=== PATIENT | female | born 1955 | race Two or more races ===

== ENCOUNTER 2018-08-09 09:58 | Day surgery (SDC) | payer OTHER ==
[~2018-08-09 09:58] MED LIST: DIOVAN HCT 1601 EACH PO; OMEPRAZOLE20 MG PO
== END 2018-08-09 13:15 | disposition home or self-care (01) ==
LOC: AMB-ENDOS 09:58
DX: K57.30 Diverticulosis of large intestine without perforation or abscess without bleeding (principal); K64.8 Other hemorrhoids; Z85.038 Personal history of other malignant neoplasm of large intestine; K52.89 Other specified noninfective gastroenteritis and colitis

== ENCOUNTER → 2020-06-21 08:00 | Outpatient (CLI) | payer OTHER | END | disposition home or self-care (01) | LOC: LAB 08:00 → ADM 14:00 → AMB-ENDOS 06-25 14:00 → EDSTATUS 06-25 14:00 → ADM 06-25 14:00 | PROVIDERS: ATTEND Surgery | DX: C18.0 Malignant neoplasm of cecum (principal); Z03.818 Encounter for observation for suspected exposure to other biological agents ruled out; R59.0 Localized enlarged lymph nodes; R19.4 Change in bowel habit ==